=== PATIENT | male | born 1965 | race Caucasian/White ===

== ENCOUNTER 2018-03-31 14:02 | Inpatient (IN) ==
[2018-03-31] MEDS ORDERED: 0.9 % Sodium Chloride 1,000 ML IVC ONE ×2 (14:27→17:10)
[2018-03-31] MEDS ORDERED: Ipratropium/Albuterol Neb 3 ML IH ONE (14:41)
[2018-03-31] MEDS ORDERED: methylPREDNISolone 125 MG/2 ML VIAL IVP ONE (14:41)
[2018-03-31] MEDS ORDERED: Ondansetron 4 MG/2 ML VIAL IVP ONE (14:43)
--- NOTE | 2018-03-31 14:44 | Emergency Department Note ---
Disposition Clinical Impression: COPD exacerbation Lung cancer Qualifiers: Laterality: right Lung location: unspecified part of lung Qualified Code(s): C34.91 - Malignant neoplasm of unspecified part of right bronchus or lung Disposition: Admitted As Inpatient Condition: Good Referrals: Deniz Lane DO [Primary Care Provider] - Forms: ED Satisfaction Letter General Adult HPI - General Chief complaint: ED Shortness of Breath/Dyspnea Stated complaint: DEEPA Time Seen by Provider: 03/31/18 14:26 Source: patient Limitations: no limitations Nursing Notes Reviewed: Yes Vital Signs Reviewed: Yes - History of Present Illness HPI Narrative: The patient is a 53 year old male with history of COPD who presented with dyspnea, chest pain, and cough. He stated the dyspnea began 2 weeks ago but acutely worsened today around 4AM. It worsens with exertion and with lying flat. He reported productive cough that has worsened from his baseline cough and increased sputum production that is black and yellow in color. He states the chest pain worsens with deep inspiration. He reports occasional shooting pain from the right shoulder to his sternum. He reports substernal chest pain at this time that is a constant pressure. He also reported nausea, 2 episodes of vomiting this morning, and diaphoresis. He last used his nebulizer and albuterol inhaler at noon today with no relief in symptoms. He denied recent steroid use and recent antibiotic use. He has never felt like this in the past. He has a history of smoking, uncontrolled diabetes, hypertension and COPD. His family history is positive for blood clots, stroke, and IN. Pain Scale: 8 - Related Data Home Medications Medication Instructions Recorded Confirmed Celexa 03/17/15 03/17/15 Glucophage 03/17/15 03/17/15 Previous Rx's Medication Instructions Recorded LORazepam [Ativan] 0.5 mg PO Q4HR PRN #8 tablet 09/19/15 Cyclobenzaprine [Flexeril] 10 mg PO TID PRN #15 tablet 10/10/15 predniSONE [Prednisone] 20 mg PO DAILY 9 Days tablet 10/10/15 Clindamycin [Cleocin] 300 mg PO Q6HR #56 capsule 10/29/15 OxyCODONE/APAP 5/325 [Percocet 1 each PO Q8HR PRN #7 tablet 12/28/15 5/325 MG] Dextran 70/Hypromellose [Natural 15 ml OP PRN PRN #2 drops 08/14/16 Balance Tears Eye Drop] Cephalexin [Keflex] 500 mg PO QID #28 capsule 06/12/17 Ibuprofen [Motrin] 600 mg PO Q8HR PRN #20 tab 06/12/17 Sulfamethoxazole/Trimeth DS 1 each PO BID #14 tablet 06/12/17 [Bactrim DS] Dicyclomine [Bentyl] 10 mg PO QID #20 capsule 12/17/17 Ondansetron ODT [Zofran ODT] 4 mg SL Q6HR PRN #15 tab.rapdis 12/17/17 Allergies Allergy/AdvReac Type Severity Reaction Status Date / Time sumatriptan [From Imitrex] AdvReac Hives Verified 03/31/18 14:15 Constitutional: Reports: weakness Eyes: Denies: eye pain, eye discharge, vision change Cardiovascular: Reports: chest pain, dyspnea on exertion, orthopnea, other ( diaphoresis; denied chest pain radiating to the back; denied tearing chest pain) . Denies: edema Respiratory: Reports: cough, dyspnea, sputum production Gastrointestinal: Reports: nausea, vomiting. Denies: abdominal pain, diarrhea, constipation, hematemesis, melena, hematochezia Musculoskeletal: Reports: back pain, neck pain, other (right shoulder pain for 4 weeks duration) Integumentary: Denies: rash Neurological: Denies: headache Psychiatric: Reports: anxiety, depression Endocrine: Reports: fatigue Past Medical History - Past Medical History Medical history: Reports: diabetes, hyperlipidemia, hypertension, migraine, other Surgical history: Reports: other Psychiatric history: Reports: anxiety, depression, PTSD - Social History Smoking Status: Current every day smoker Smokeless Tobacco Status: No Alcohol use: Reports: occasionally Drug use: Reports: none Physical Exam General: Moderate respiratory distress Head: Normocephalic Atraumatic Eyes: PERRL, EOMI ENT: Airway patent, no stridor Neck: supple, no meningismus Chest: Decreased breath sounds bilaterally Cardiac: Regular rhythm Abdomen: soft, nontender, nondistended; no guarding, rebound, or tenderness to percussion Musculoskeletal: Calves symmetric, nontender; mild swelling without significant pitting edema Skin: No rash, normal skin tone Neuro: Alert and Oriented to person, place, and time; No focal deficit, - General Limitations: no limitations General appearance: alert, in no apparent distress Course - Reevaluation(s) Reevaluation #1: Patient with new mass on x-ray. CTA ordered to rule out PE and get further information about mass. Reevaluation #2: Patient has mass concerning for lung cancer. I did have this discussion with the patient. His breathing has improved but continues to have wheezing. More do nebs have been ordered. His pulse ox is 100% on room air during my evaluation. CTA was negative for PE. Antibiotics have been prescribed secondary to positive sputum production. - Consultations Consultation #1: Stress with hospitalist. Patient accepted for admission. Vital Signs Temperature 97.8 F 03/31/18 14:03 Pulse Rate 122 03/31/18 14:03 Respiratory Rate 22 03/31/18 14:03 Blood Pressure 155/96 03/31/18 14:03 O2 Sat by Pulse Oximetry 94 03/31/18 14:03 Temperature 97.8 F 03/31/18 14:14 Pulse Rate 105 03/31/18 17:41 Respiratory Rate 26 03/31/18 17:41 Blood Pressure 164/117 03/31/18 17:41 O2 Sat by Pulse Oximetry 96 03/31/18 17:41 Oxygen Delivery Oxygen Delivery Room Air Medical Decision Making - Lab Data Result diagrams: 03/31/18 14:27 03/31/18 14:27 Lab Results 03/31/18 03/31/18 03/31/18 Range/Units 14:27 14:27 14:30 WBC 9.5 (4.3-11.1) K/mcL RBC 5.46 (4.19-5.50) M/mcL Hgb 17.6 H (12.9-16.9) g/dL Hct 50.4 H (37.5-50.1) % MCV 92.3 (83.0-100.0) fL MCH 32.2 (28.0-33.3) pg MCHC 34.9 (31.6-35.5) g/dL RDW 12.9 (11.5-14.5) % Plt Count 236 (140-400) K/mcL MPV 10.8 (9.4-12.4) fL Immature Gran % 0.4 (0-4) % Seg Neutrophils % 65.2 % Lymphocytes % 24.6 % Monocytes % 7.7 % Eosinophils % 1.4 % Basophils % 0.7 % Neutrophils # 6.2 (1.6-8.9) K/mcL Lymphocytes # 2.3 (0.6-4.6) K/mcL Monocytes # 0.7 (0.0-1.3) K/mcL Eosinophils # 0.1 (0.0-0.6) K/mcL Basophils # 0.1 (0.0-0.2) K/mcL VBG pH (7.32-7.42) pH Units VBG pCO2 (41-51) mmHg VBG pO2 (25-50) mmHg VBG HCO3 (21-27) mEq/L Sodium 128 L (136-145) mEq/L Potassium 4.4 (3.5-5.1) mEq/L Chloride 92 L (98-107) mEq/L Carbon Dioxide 25 (23-29) mEq/L BUN 12 (6-20) mg/dL Creatinine 0.81 (0.70-1.30) mg/dL Est GFR ( Amer) > 60 (> 60) Est GFR (Non-Af Amer) > 60 (> 60) BUN/Creatinine Ratio 15 (6-26) Glucose 455 H (70-105) mg/dL Calculated Osmolality 286 (280-300) Lactic Acid 1.7 (0.5-2.2) mmol/L Calcium 10.4 H (8.6-10.3) mg/dL Troponin I < 0.03 (< 0.04) ng/mL B-Natriuretic Peptide (Less than 100) pg/mL Beta-Hydroxybutyric Acd (0.02-0.27) mmol/L Urine Color (Yellow) Urine Clarity (Clear) Urine pH (5.0-8.0) pH Units Ur Specific [place] (1.010-1.025) Urine Protein (Neg-Trace) mg/dL Urine Glucose (UA) (Normal) mg/dL Urine Ketones (Negative) mg/dL Urine Blood (Negative) Urine Nitrite (Negative) Urine Bilirubin (Negative) Urine Urobilinogen (Normal) mg/dL Ur Leukocyte Esterase (Negative) Urine Microscopic RBC (0-3) per hpf Urine Microscopic WBC (0-3) per hpf Ur Squamous Epith Cells (None-Few) per lpf Urine Bacteria (None-Few) per hpf Hyaline Casts (None-Few) per lpf Ur Culture Indicated? (NO) 03/31/18 03/31/18 03/31/18 Range/Units 14:30 16:08 16:20 WBC (4.3-11.1) K/mcL RBC (4.19-5.50) M/mcL Hgb (12.9-16.9) g/dL Hct (37.5-50.1) % MCV (83.0-100.0) fL MCH (28.0-33.3) pg MCHC (31.6-35.5) g/dL RDW (11.5-14.5) % Plt Count (140-400) K/mcL MPV (9.4-12.4) fL Immature Gran % (0-4) % Seg Neutrophils % % Lymphocytes % % Monocytes % % Eosinophils % % Basophils % % Neutrophils # (1.6-8.9) K/mcL Lymphocytes # (0.6-4.6) K/mcL Monocytes # (0.0-1.3) K/mcL Eosinophils # (0.0-0.6) K/mcL Basophils # (0.0-0.2) K/mcL VBG pH (7.32-7.42) pH Units VBG pCO2 (41-51) mmHg VBG pO2 (25-50) mmHg VBG HCO3 (21-27) mEq/L Sodium (136-145) mEq/L Potassium (3.5-5.1) mEq/L Chloride (98-107) mEq/L Carbon Dioxide (23-29) mEq/L BUN (6-20) mg/dL Creatinine (0.70-1.30) mg/dL Est GFR ( Amer) (> 60) Est GFR (Non-Af Amer) (> 60) BUN/Creatinine Ratio (6-26) Glucose (70-105) mg/dL Calculated Osmolality (280-300) Lactic Acid (0.5-2.2) mmol/L Calcium (8.6-10.3) mg/dL Troponin I (< 0.04) ng/mL B-Natriuretic Peptide 14 (Less than 100) pg/mL Beta-Hydroxybutyric Acd 1.12 H (0.02-0.27) mmol/L Urine Color Yellow (Yellow) Urine Clarity Clear (Clear) Urine pH 6.0 (5.0-8.0) pH Units Ur Specific [place] > 1.030 H (1.010-1.025) Urine Protein 30 H (Neg-Trace) mg/dL Urine Glucose (UA) >=1000 H (Normal) mg/dL Urine Ketones 15 H (Negative) mg/dL Urine Blood Negative (Negative) Urine Nitrite Negative (Negative) Urine Bilirubin Negative (Negative) Urine Urobilinogen Normal (Normal) mg/dL Ur Leukocyte Esterase Negative (Negative) Urine Microscopic RBC 0-3 (0-3) per hpf Urine Microscopic WBC 0-3 (0-3) per hpf Ur Squamous Epith Cells None Seen (None-Few) per lpf Urine Bacteria None Seen (None-Few) per hpf Hyaline Casts None Seen (None-Few) per lpf Ur Culture Indicated? NO (NO) 03/31/18 Range/Units 16:22 WBC (4.3-11.1) K/mcL RBC (4.19-5.50) M/mcL Hgb (12.9-16.9) g/dL Hct (37.5-50.1) % MCV (83.0-100.0) fL MCH (28.0-33.3) pg MCHC (31.6-35.5) g/dL RDW (11.5-14.5) % Plt Count (140-400) K/mcL MPV (9.4-12.4) fL Immature Gran % (0-4) % Seg Neutrophils % % Lymphocytes % % Monocytes % % Eosinophils % % Basophils % % Neutrophils # (1.6-8.9) K/mcL Lymphocytes # (0.6-4.6) K/mcL Monocytes # (0.0-1.3) K/mcL Eosinophils # (0.0-0.6) K/mcL Basophils # (0.0-0.2) K/mcL VBG pH 7.37 (7.32-7.42) pH Units VBG pCO2 42 (41-51) mmHg VBG pO2 132 H (25-50) mmHg VBG HCO3 24 (21-27) mEq/L Sodium (136-145) mEq/L Potassium (3.5-5.1) mEq/L Chloride (98-107) mEq/L Carbon Dioxide (23-29) mEq/L BUN (6-20) mg/dL Creatinine (0.70-1.30) mg/dL Est GFR ( Amer) (> 60) Est GFR (Non-Af Amer) (> 60) BUN/Creatinine Ratio (6-26) Glucose (70-105) mg/dL Calculated Osmolality (280-300) Lactic Acid (0.5-2.2) mmol/L Calcium (8.6-10.3) mg/dL Troponin I (< 0.04) ng/mL B-Natriuretic Peptide (Less than 100) pg/mL Beta-Hydroxybutyric Acd (0.02-0.27) mmol/L Urine Color (Yellow) Urine Clarity (Clear) Urine pH (5.0-8.0) pH Units Ur Specific [place] (1.010-1.025) Urine Protein (Neg-Trace) mg/dL Urine Glucose (UA) (Normal) mg/dL Urine Ketones (Negative) mg/dL Urine Blood (Negative) Urine Nitrite (Negative) Urine Bilirubin (Negative) Urine Urobilinogen (Normal) mg/dL Ur Leukocyte Esterase (Negative) Urine Microscopic RBC (0-3) per hpf Urine Microscopic WBC (0-3) per hpf Ur Squamous Epith Cells (None-Few) per lpf Urine Bacteria (None-Few) per hpf Hyaline Casts (None-Few) per lpf Ur Culture Indicated? (NO)
[2018-03-31 14:47] LABS: Basophils # 0.1 K/mcL (0.0-0.2); Basophils % 0.7 %; Eosinophils # 0.1 K/mcL (0.0-0.6); Eosinophils % 1.4 %; Hematocrit 50.4 % (37.5-50.1); Hemoglobin 17.6 g/dL (12.9-16.9); Immature Granulocytes % 0.4 % (0-4); Lymphocytes # 2.3 K/mcL (0.6-4.6); Lymphocytes % 24.6 %; Mean Corpuscular HGB Conc 34.9 g/dL (31.6-35.5); Mean Corpuscular Hemoglobin 32.2 pg (28.0-33.3); Mean Corpuscular Volume 92.3 fL (83.0-100.0); Mean Platelet Volume 10.8 fL (9.4-12.4); Monocytes # 0.7 K/mcL (0.0-1.3); Monocytes % 7.7 %; Neutrophils # 6.2 K/mcL (1.6-8.9); Platelet Count 236 K/mcL (140-400); Red Blood Count 5.46 M/mcL (4.19-5.50); Red Cell Distribution Width 12.9 % (11.5-14.5); Segmented Neutrophils % 65.2 %
[2018-03-31] MEDS ORDERED: Isovue-370 500 ML INFUS..BTL IV ONE ×2 (15:08→15:21)
[2018-03-31 15:15] LABS: Troponin I < 0.03 ng/mL (< 0.04)
[2018-03-31 15:23] LABS: BUN/Creatinine Ratio 15 (6-26); Blood Urea Nitrogen 12 mg/dL (6-20); Calcium 10.4 mg/dL (8.6-10.3); Carbon Dioxide 25 mEq/L (23-29); Chloride 92 mEq/L (98-107); Glucose 455 mg/dL (70-105); Osmolality,Calculated 286 (280-300); Potassium 4.4 mEq/L (3.5-5.1); Sodium 128 mEq/L (136-145); eGFR For Non-African Americans > 60 (> 60)
[2018-03-31] MEDS ORDERED: *HR* OxyCODONE Immed Rel 5 MG TABLET PO STA ×2 (15:38→17:37)
[2018-03-31 16:26] LABS: VBG HCO3 24 mEq/L (21-27); VBG PCO2 42 mmHg (41-51); VBG PH 7.37 pH Units (7.32-7.42); VBG PO2 132 mmHg (25-50)
[2018-03-31 16:37] LABS: Bilirubin,Urine Negative (Negative); Blood,Urine Negative (Negative); Clarity,Urine Clear (Clear); Color,Urine Yellow (Yellow); Glucose,Urine (UA) >=1000 mg/dL (Normal); Ketones,Urine 15 mg/dL (Negative); Leukocyte Esterase,Urine Negative (Negative); Nitrite,Urine Negative (Negative); Protein,Urine 30 mg/dL (Neg-Trace); Specific Gravity,Urine > 1.030 (1.010-1.025); Urobilinogen,Urine Normal (Normal)
[2018-03-31 16:39] LABS: Bacteria,Urine None Seen per hpf (None-Few); Hyaline Casts,Urine None Seen per lpf (None-Few); RBC,Urine 0-3 per hpf (0-3); Squamous Epithelial Cell,Urine None Seen per lpf (None-Few); WBC,Urine 0-3 per hpf (0-3)
[2018-03-31] MEDS ORDERED: cefTRIAXone 1,000 MG in Water for inj. (sterile) 20 ML 10 ML IVP ONE (17:37)
[2018-03-31] MEDS ORDERED: Azithromycin 250 MG TABLET PO ONE (17:37)
[2018-03-31] MEDS ORDERED: Insulin Human Regular 10 UNIT in 0.9 % Sodium Chloride 10 ML IV ONE (18:08)
[2018-03-31] MEDS ORDERED: Naloxone 0.4 MG/ML INJ IVP PRN (18:11)
[2018-03-31] MEDS: Ipratropium/Albuterol Neb 3 ML IH SCH (19:44)
[2018-03-31] MEDS ORDERED: *HR* LORazepam 2 MG/ML VIAL IVP ONE (20:14)
[2018-03-31] MEDS ORDERED: Insulin LISPRO 300 UNITS/3 ML VIAL SQ SCH (21:00)
--- NOTE | 2018-03-31 21:59 | Internal Med History&Physical ---
Date of Encounter: 03/31/18 Time of Encounter: 21:27 Internal Medicine - H&P: HPI Chief complaint: cough, shortness of breath, chest pain Admitted From: Home History of present illness: Mr. Huynh is a 53 year old male hx COPD presented to ED for shortness of breath , productive cough, and chest pain he describes as restricted from taking large breath. Onset 2-3 weeks ago with increased mucus production with yellow to black sputum. he is using albuteral inhaler 7-8 times per day with out improvement. In last four days, he has 3-4 episodes of vomiting per day triggered by sever coughing and concurrent with with mild nausea that resolves one hour after vomiting. Admits to diaphoresis but denies sharp or crushing chest pain or radiation of left arm or neck. Negative troponin and BNP. He reports one week of right shoulder pain - tender worse at scapula and sharp pain radiating to sternum. In Ed, Chest - X ray showed a mass that was followed up by CTA confirming a large right upper lob mass consistent with primary lung cancer with possible mets to right hilar lymph nodes. No signs of PE or infiltrate. Treated for COPD exacerbation with with azithromycin, duonebs and solu-medral 60 mg. He was tachycardia at 114 and tachypenic 26- but afebrile and oxygen saturation 95% on room air with normal lactic acid. Smoking history of 2-3 packs for 30 years. He has uncontrolled diabetes with neuropathy , his blood glucoses typically 200 -300 but increased to 300-400s the last 2-3 weeks with increased polydipsa and polyruria. In same time period has weight loss of 12 lbs with decreased appetite that he attributed to stress. he reports mild headache located occiput right sided with blurred visioning right eye . In Ed, glucose was 455 and positive beta of 1.12 with anion gap of 11- for which he received 2 liters IVF and insulin regular 10 units. He has Bipolar disorder and notes increased recent anxiety and agitation due to life stresses with history of aggression. He does not follow with a psychiatrist. He was last hospitalized for psychiatric concerns one year ago after manic episode triggered by Lyrica. Tonight in ED he because very anxious after receiving this bad news and received 1mg Ativan. He has history of hypertension but stopped propanlol a few months ago because his blood pressure was controlled. Past Med Surg Social Fam HX - Past Medical History Medical history: diabetes, hyperlipidemia, hypertension, migraine, other Additional medical history: back problems Psychiatric history: anxiety, depression, PTSD - Past Surgical History Surgical History: other Additional surgical history: cyst removed -rt arm/back - Social History Smoking Status: Current every day smoker Smokeless Tobacco Status: No Alcohol use: occasionally Drug use: none Internal Medicine - H&P: Meds Albuterol Sulfate [Ventolin Hfa] 2 puff IH Q6H PRN 03/31/18 [History] Fluticasone Propionate Nasal [Flonase] 1 spr NS DAILY 03/31/18 [History] Fluticasone/Vilanterol [Breo Ellipta 100-25 Mcg INH] 1 puff IH DAILY 03/31/18 [ History] Insulin Glargine,Hum.rec.anlog [[place] Solostoneyda] 65 unit SQ HS 03/31/18 [History ] Loratadine [Claritin] 10 mg PO DAILY 03/31/18 [History] Venlafaxine HCl [Venlafaxine HCl ER] 150 mg PO DAILY 03/31/18 [History] 3 Allergy/AdvReac Type Severity Reaction Status Date / Time sumatriptan [From Imitrex] AdvReac Hives Verified 03/31/18 18:33 All Systems PM: A 10-system review of systems was performed and is negative for pertinent findings except as documented above in the HPI. - Constitutional Constitutional: as per HPI, chills, fatigue, fever(s), weight loss - EENT Eyes: as per HPI, blurry vision, change in vision, no spots in vision, no tunnel vision Additional comments: Blurry vision in right eye with bilateral gradual decrease in visual acuity, last eye exam over 2 years ago - Cardiovascular Cardiovascular ROS IM: as per HPI, chest pain, diaphoresis, dyspnea, no edema - Respiratory Respiratory: as per HPI, cough, dyspnea, dyspnea on exertion, wheezing, excessive phlegm production, change in phlegm color, no hemoptysis - Gastrointestinal Gastrointestinal: abdominal pain, vomiting, no diarrhea, no hematemesis - Genitourinary Genitourinary ROS male: urinary frequency, no difficulty urinating, no dysuria, no hematuria - Musculoskeletal Musculoskeletal ROS IM: arthralgias, no neck pain - Integumentary Integumentary IM: no erythema, no rash - Neurological Neurological ROS: as per HPI, headache(s), weakness - Psychiatric Psychiatric: anxiety, behavioral changes, irritability, mood swings, no suicidal ideation - Constitutional Vitals: Temp Pulse Resp BP Pulse Ox 97.8 F 110 21 163/101 95 03/31/18 14:14 03/31/18 19:56 03/31/18 19:56 03/31/18 19:56 03/31/18 19:56 General appearance: Present: mild distress, A&O X 3, answers questions appropriately Exam: anxious and shaking but good oxygen saturation on room air - Head Head exam: Present: atraumatic, normocephalic - Respiratory Respiratory exam: Present: decreased breath sounds. Absent: accessory muscle use, stridor, wheezes Additional comments: decreased breath sounds in lower [place] - Cardiovascular Cardiovascular exam: Present: +S1, +S2, tachycardia. Absent: gallop, +S3, +S4 - GI/Abdominal GI/Abdominal exam: Present: normal bowel sounds, tenderness. Absent: distended , mass, rebound Additional comments: diffuse abdominal tenderness - Extremities Exam Extremities exam: Present: tenderness, radial pulses palpable and symmetrical. Absent: calf tenderness, joint swelling, pedal edema Additional comments: tenderness to right scapula Internal Med - H&P Results - Labs CBC & Chem 7: 03/31/18 14:27 03/31/18 14:27 - Assessment and plan (1) COPD exacerbation Current Visit: Yes Status: Acute Assessment and plan: COPD exacerbation possible restricive pattern with lung mass. Unlikely PNA with negative lactic acid and no infiltrates on CTA. - Solumedrol 60mg q 8 - Azithromycin - Duoneb q 4 hr - NC oxygen supplementation PRN (2) Hyperglycemia Current Visit: Yes Status: Acute Assessment and plan: glucose of 455 with beta hydroxybutyric 1.12 unlikely to be DKA with anion gap of 11 - start basal insulin at 18 with nutrition based 6 - mild hyponatremia 129 - normal plasma calculated osm - urine ketones and glucose (3) Lung cancer Current Visit: Yes Status: Acute Assessment and plan: New diagnosis based on chest CTA- likely primary mass with mets to right hilar - plan to consult pulm tomorrow to advise for further diagnostic and out patient follow up - consider consult social work (4) Bipolar 1 disorder Current Visit: Yes Status: Acute Assessment and plan: Increased anxiety with new cancer diagnosis but no other signs of acute manic episode- likely cause of tachycardia - continue effexor - hydroxyzine 50mg tid PRN - consider psych consult if he develops manic symptoms - order UDS with presumptive positive for benzo given in ED (5) Chest pain Current Visit: Yes Status: Acute Assessment and plan: Atypically chest pain possibly referred pain lung cancer - negative troponin - will trend - normal BNP 14 - EKG no acute changes Qualifiers: Chest pain type: chest pain on breathing Qualified Code(s): R07.1 - Chest pain on breathing; R07.81 - Pleurodynia (6) Hypertension Current Visit: Yes Status: Acute Assessment and plan: restart propanlol 20 mg tid with hope it may also help anxiety Qualifiers: Hypertension type: essential hypertension Qualified Code(s): I10 - Essential (primary) hypertension - Time Spent With Patient Total time spent is greater than 50% in coordination of care (as documented) at patient's floor/unit and/or counseling patient: Greater than 35 minutes
[2018-03-31] MEDS ORDERED: Dextrose Gel 15 GM/37.5 ML TUBE PO PRN ×2 (22:15)
[2018-03-31] MEDS ORDERED: *HR* Dextrose 50 % in Water (Syg) 50 ML SYRINGE IVP PRN (22:15)
[2018-03-31] MEDS ORDERED: D5% in Water 1,000 ML IVC PRN (22:15)
[2018-03-31] MEDS ORDERED: Ondansetron ODT 4 MG TAB.RAPDIS SL PRN (22:21)
[2018-03-31] MEDS: hydrOXYzine pamoate 25 MG CAPSULE PO PRN (23:31)
[2018-03-31] MEDS: Insulin DETEMIR 100 UNIT/ML X5UNITS SQ SCH (23:32)
[2018-03-31] MEDS ORDERED: Acetaminophen 325 MG TABLET PO PRN (23:51)
[2018-04-01] MEDS ORDERED: methylPREDNISolone 125 MG/2 ML VIAL IVP SCH
[2018-04-01] MEDS ORDERED: *HR* HYDROcodone/Acet 5/325 mg TABLET PO ONE (00:03)
[2018-04-01] MEDS: Ipratropium/Albuterol Neb 3 ML IH SCH ×7 (00:18→23:45)
[2018-04-01 00:46] LABS: Basophils % 0.2 %; Hematocrit 44.2 % (37.5-50.1); Immature Granulocytes % 0.8 % (0-4); Lymphocytes # 0.4 K/mcL (0.6-4.6); Lymphocytes % 6.8 %; Mean Corpuscular HGB Conc 35.1 g/dL (31.6-35.5); Mean Corpuscular Hemoglobin 32.2 pg (28.0-33.3); Mean Corpuscular Volume 91.7 fL (83.0-100.0); Mean Platelet Volume 10.9 fL (9.4-12.4); Monocytes # 0.1 K/mcL (0.0-1.3); Monocytes % 1.7 %; Neutrophils # 5.9 K/mcL (1.6-8.9); Platelet Count 197 K/mcL (140-400); Red Blood Count 4.82 M/mcL (4.19-5.50); Red Cell Distribution Width 12.6 % (11.5-14.5); Segmented Neutrophils % 90.5 %
[2018-04-01 00:50] LABS: Hemoglobin 15.5 g/dL (12.9-16.9)
[2018-04-01 01:17] LABS: BUN/Creatinine Ratio 22 (6-26); Blood Urea Nitrogen 20 mg/dL (6-20); Calcium 9.7 mg/dL (8.6-10.3); Carbon Dioxide 23 mEq/L (23-29); Chloride 93 mEq/L (98-107); Glucose 520 mg/dL (70-105); Osmolality,Calculated 286 (280-300); Potassium 4.6 mEq/L (3.5-5.1); Sodium 125 mEq/L (136-145); eGFR For Non-African Americans > 60 (> 60)
--- NOTE | 2018-04-01 01:27 | Event Note ---
Date of Encounter: 04/01/18 Time of Encounter: 01:24 I received notification critical lab glucose 520. Per nurse he received basal insulin at 11:30 pm and then glucose reading at midnight. The patient ate subway sandwich. Bruno will recheck glucose now and use the sliding bernard
[2018-04-01] MEDS ORDERED: Insulin LISPRO 300 UNITS/3 ML VIAL SQ ONE (01:31)
[2018-04-01 02:07] LABS: Amphetamine Screen,Urine Negative ng/mL (Cutoff=1000); Barbiturate Screen,Urine Negative ng/mL (Cutoff=200); Benzodiazepines Screen,Urine Negative ng/mL (Cutoff=200); Cannabinoid Screen,Urine Negative ng/mL (Cutoff = 50); Cocaine Screen,Urine Negative ng/mL (Cutoff= 300); Opiate Screen,Urine Negative ng/mL (Cutoff=300); Phencyclidine Screen,Urine Negative ng/mL (Cutoff=25)
[2018-04-01] MEDS: *HR* Heparin 5,000 UNIT/ML VIAL SQ SCH ×2 (06:18→17:10)
[2018-04-01 06:54] LABS: Estimated Average Glucose 258 mg/dl; Hemoglobin A1C 10.6 %
--- NOTE | 2018-04-01 07:46 | Electrocardiograph Report ---
[address] [place] [address] Test Date: 2018-03-31 Pat Name: Mani Huynh Department: [id number] Room: 2A37 Gender: Research Home Economist: : 1965 Requested By: [id number] Order Number: [id number] Reading MD: Sreedhar Metlon Measurements Intervals [place] Rate: 109 P: 64 CA: 130 QRS: 228 QRSD: 100 T: 61 QT: 329 QTc: 443 Interpretive Statements Sinus tachycardia Probable left atrial enlargement Possible inferior infarct, old Electronically Signed On 04-01-2018 7:44:13 EDT by Sreedhar Melton
[2018-04-01] MEDS ORDERED: Insulin LISPRO 300 UNITS/3 ML VIAL SQ SCH (08:00)
[2018-04-01] MEDS: MethylPREDNISolone 40 MG/ML VIAL IVP SCH ×2 (08:47→16:19)
[2018-04-01] MEDS: Venlafaxine XR (24 HR) 150 MG CAP.ER.24H PO SCH (08:47)
[2018-04-01] MEDS: Loratadine 10 MG TABLET PO SCH (08:47)
[2018-04-01] MEDS: Insulin LISPRO 300 UNITS/3 ML VIAL SQ SCH ×6 (08:54→21:34)
[2018-04-01] MEDS ORDERED: [Breo Ellipta 100-25 Mcg IH SCH (09:00)
[2018-04-01] MEDS: hydrOXYzine pamoate 25 MG CAPSULE PO PRN ×2 (09:08→21:24)
[2018-04-01] MEDS: Fluticasone Propionate Nasal 50 MCG/SPRAY BOTTLE NS SCH (09:53)
[2018-04-01] MEDS: *HR* OxyCODONE Immed Rel 5 MG TABLET PO PRN ×3 (11:03→21:25)
[2018-04-01] MEDS ORDERED: Acetaminophen 325 MG TABLET PO PRN (13:21)
--- NOTE | 2018-04-01 14:10 | Internal Med Progress Note ---
Hospitalist Progress Note - Encounter Date of Encounter: 04/01/18 Time of Encounter: 10:00 - Subjective Interval History: H&P reviewed. 53-year-old male with history of COPD and tobacco abuse is admitted for COPD exacerbation and newly diagnosed right upper lobe mass. Complaining of R upper chest/shoulder pain. SOB improved. No palpitation, orthopnea, leg swelling. - Exam Vitals: Temp Pulse Resp BP Pulse Ox 98.6 F 73 16 157/94 95 04/01/18 11:41 04/01/18 11:41 04/01/18 11:47 04/01/18 11:41 04/01/18 11:47 Exam: General: Alert and oriented, not in acute distress. Cardiovascular:Normal S1 & S2, No JVD. Pulse regular. Lungs: scattered wheezes bilaterally Abdomen:Soft, non-tender, no rigidity. MSK: R shoulder/upper chest tender to palpation. ROM full Neurological:Normal cognition and motor skills. Non-focal - Assessment and Plan (1) COPD exacerbation Current Visit: Yes Status: Acute Assessment and Plan: Continue IV Solu-Medrol, azithromycin, and duoneb every 4 and when necessary (2) Mass of right lung Current Visit: Yes Status: Acute Assessment and Plan: New diagnosis, history of 50 pack year smoking Associated with right hilar lymphadenopathy and extension into the mediastinum abutting the ascending aorta significant pain over the same region, analgesics as prescribed pulm consult, NPO after midnight for bronchoscopy tomorrow (3) Diabetes mellitus Current Visit: Yes Status: Acute Assessment and Plan: Poorly controlled diabetes, A1c 10.6 Glycemic control aggravated by steroid use, 429 on presentation improving on current regime of levemir 18U and lispro 6U TIDWM with MDSS, continue (4) DVT prophylaxis Current Visit: Yes Status: Acute Assessment and Plan: Subcutaneous heparin - Time Spent with Patient Total time spent is greater than 50% in coordination of care (as documented) at patient's floor/unit and/or counseling patient: Plan of Care Discussed with: patient Internal Medicine: Result - Labs CBC & Chem 7: 04/01/18 00:23 04/01/18 00:23 Labs: Short CBC 04/01/18 Range/Units 00:23 WBC 6.5 (4.3-11.1) K/mcL Hgb 15.5 D (12.9-16.9) g/dL Hct 44.2 (37.5-50.1) % Plt Count 197 (140-400) K/mcL Neutrophils # 5.9 (1.6-8.9) K/mcL BMP 04/01/18 00:23 Sodium 125 L Potassium 4.6 Chloride 93 L Carbon Dioxide 23 BUN 20 Creatinine 0.91 Glucose 520 H* Calcium 9.7 Cardiac Enzymes 04/01/18 04/01/18 Range/Units 00:23 05:53 Troponin I < 0.03 < 0.03 (< 0.04) ng/mL Consult Discharge Plan - Plan Referrals: Deniz Lane DO [Primary Care Provider] - (3) Diabetes mellitus Qualifiers: Diabetes mellitus type: type 2 Diabetes mellitus snf insulin use: with roasterman use Diabetes mellitus complication status: with unspecified complications Qualified Code(s): E11.8 - Type 2 diabetes mellitus with unspecified complications; 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
[2018-04-01] MEDS ORDERED: 0.9 % Sodium Chloride 1,000 ML IVC SCH (14:30)
[2018-04-01] MEDS: Budesonide/Formoterol 160/4.5 1 PUFF INH IH SCH ×2 (15:45→19:43)
--- NOTE | 2018-04-01 16:14 | Pulmonology Consult Note ---
<Nemo Mayer M - Last Filed: 04/01/18 17:34> Date of Encounter: 04/01/18 Medications and Allergies Albuterol Sulfate [Ventolin Hfa] 2 puff IH Q6H PRN 03/31/18 [History] Fluticasone Propionate Nasal [Flonase] 1 spr NS DAILY 03/31/18 [History] Fluticasone/Vilanterol [Breo Ellipta 100-25 Mcg INH] 1 puff IH DAILY 03/31/18 [ History] Insulin Glargine,Hum.rec.anlog [Toujeo Solostar] 65 unit SQ HS 03/31/18 [History ] Loratadine [Claritin] 10 mg PO DAILY 03/31/18 [History] Venlafaxine HCl [Venlafaxine HCl ER] 150 mg PO DAILY 03/31/18 [History] 3 Allergy/AdvReac Type Severity Reaction Status Date / Time sumatriptan [From Imitrex] AdvReac Hives Verified 03/31/18 18:33 All Systems: The remainder of the systems were reviewed and are negative Physical Examination Vital Signs: Vital Signs, Last 4 Hours Temp Pulse Resp BP Pulse Ox 04/01/18 16:25 97.9 F 81 19 140/86 97 04/01/18 15:47 16 95 Results - Laboratory Findings CBC and BMP: 04/01/18 00:23 04/01/18 00:23 Abnormal lab findings: Abnormal lab results Lymphocytes # 0.4 K/mcL (0.6-4.6) L 04/01/18 00:23 VBG pO2 132 mmHg (25-50) H 03/31/18 16:22 Sodium 125 mEq/L (136-145) L 04/01/18 00:23 Chloride 93 mEq/L (98-107) L 04/01/18 00:23 Glucose 520 mg/dL (70-105) H* 04/01/18 00:23 POC Glucose 149 mg/dL (70-99) H 04/01/18 12:24 Hemoglobin A1c 10.6 % (-5.6) H 04/01/18 00:23 Beta-Hydroxybutyric Acd 1.12 mmol/L (0.02-0.27) H 03/31/18 16:08 Ur Specific [place] > 1.030 (1.010-1.025) H 03/31/18 16:20 Urine Protein 30 mg/dL (Neg-Trace) H 03/31/18 16:20 Urine Glucose (UA) >=1000 mg/dL (Normal) H 03/31/18 16:20 Urine Ketones 15 mg/dL (Negative) H 03/31/18 16:20 Consult Discharge Plan - Plan Referrals: Deniz Lane DO [Primary Care Provider] - - Attending Attestation I examined this patient and my medical decision-making was reviewed with the Resident Physician. I agree with the documented findings, disposition and treatment plan as described except to the extent set forth below. Patient seen and examined. Labs, radiology, chart personally reviewed. 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 Reviewed CT chest result with the patient and this is very concerning for malignancies since patient has significant history of smoking and he was counseled to quit smoking and the location is protecting this is bronchogenic carcinoma. I have explained to the patient that he needs biopsy and he understand and agreed to have it done. I will arrange bronchoscopy for the patient.A bronchoscopy is recommended. The procedure , risks, benefits, complications, and expected outcomes have been reviewed. Benefits of diagnosis, as well as risks to include bleeding, infection, pneumothorax which may require surgical intervention, and in a small population. The patient is aware that sometimes test is nondiagnostic. Discussed with patient and agrees to proceed. Cardiovascular: stable Thank you for the consultation <Tereso Kessler - Last Filed: 04/01/18 23:03> Date of Encounter: 04/01/18 Time of Encounter: 16:14 Assessment and Plan (1) Mass of right lung Current Visit: Yes Status: Acute CTA revealed large right upper lobe mass measuring 6.6 x 5.7 x 6.0cm adjacent to the mediastinum with an enlarged right hilar lymph node concerning for metastisis Given pt's hx of tobacco abuse, likely primary lung cancer Plan for bronchoscopy with biopsies tomorrow. Procedure, risks and benefits discussed at length with pt. (2) Tobacco abuse Current Visit: Yes Status: Acute Pt reports smoking 2 ppd Spent >10 minutes counseling pt on importance of cessation, particularly given large right lung mass Pt expresses desire to quit smoking Nicotine patch 21mg Nicotine gum prn at pt's request and no concern for aspiration History of Present Illness Consult date: 04/01/18 Requesting physician: Tonya White Reason for consult: COPD, lung mass Chief complaint: SOB History of present illness: Mr. Huyhn is a 53M with PMH of COPD presented to the ED on 03/31 for shortness of breath, increased cough with sputum production, and chest pain on inspiration. Pt stated increased cough with yellow and black sputum production began approximately 2-3 weeks ago. CXR and CTA from ED revealed a large right upper lobe mass concerning for primary lung malignancy. During the encounter with this provider, the pt was resting comfortably in bed. States his shortness of breath and associated chest pain has improved since his admission. Denies any fever, chills, unintentional weight loss, nausea, vomiting , numbness, or tingling. Pt admits to smoking 2ppd with thoughts of quitting. Pt queried about nicotine patches and gum. Past Med Surg Social Fam HX - Past Medical History Medical history: diabetes, hyperlipidemia, hypertension, migraine, other Additional medical history: back problems Psychiatric history: anxiety, depression, PTSD - Past Surgical History Surgical History: other Additional surgical history: cyst removed -rt arm/back - Social History Smoking Status: Current every day smoker Packs per day: 2 Smokeless Tobacco Status: No Alcohol use: occasionally Drug use: none All Systems: The remainder of the systems were reviewed and are negative - Constitutional Constitutional: no chills, no fever(s), no weight loss - Cardiovascular Cardiovascular: chest pain, dyspnea, no edema, no palpitations, no pedal edema - Respiratory Respiratory: cough, dyspnea, pain on inspirtation, excessive phlegm production, change in phlegm color, no hemoptysis, no wheezing, no chest congestion - Gastrointestinal Gastrointestinal: no abdominal pain, no nausea, no vomiting - Musculoskeletal Musculoskeletal: no weakness, no numbness, no tingling - Neurological Neurological: no confusion, no dizziness, no vertigo - Hematologic/Lymphatic Hematologic/Lymphatic: no easy bleeding, no easy bruising, no lymphadenopathy Physical Examination Vital Signs: Vital Signs, Last 4 Hours Resp Pulse Ox 04/01/18 15:47 16 95 General appearance: no acute distress Eyes: nonicteric ENT: oropharynx moist Neck: supple, no lymphadenopathy, no JVD Effort: normal Inspection: normal Auscultation: right: diminished breath sounds, bilateral: clear Percussion: bilateral: not dull Tactile fremitus: bilateral: normal Cardiovascular: regular rate and rhythm Gastrointestinal: soft, non-tender, non-distended Integumentary: normal Extremities: no cyanosis, no edema, no clubbing, pink and warm Musculoskeletal: no deformities normal mental status, non-focal exam, pupils equal and round mood appropriate, affect normal Results - Laboratory Findings CBC and BMP: 04/01/18 00:23 04/01/18 00:23 Abnormal lab findings: Abnormal lab results Lymphocytes # 0.4 K/mcL (0.6-4.6) L 04/01/18 00:23 VBG pO2 132 mmHg (25-50) H 03/31/18 16:22 Sodium 125 mEq/L (136-145) L 04/01/18 00:23 Chloride 93 mEq/L (98-107) L 04/01/18 00:23 Glucose 520 mg/dL (70-105) H* 04/01/18 00:23 POC Glucose 149 mg/dL (70-99) H 04/01/18 12:24 Hemoglobin A1c 10.6 % (-5.6) H 04/01/18 00:23 Beta-Hydroxybutyric Acd 1.12 mmol/L (0.02-0.27) H 03/31/18 16:08 Ur Specific Fifty [place] > 1.030 (1.010-1.025) H 03/31/18 16:20 Urine Protein 30 mg/dL (Neg-Trace) H 03/31/18 16:20 Urine Glucose (UA) >=1000 mg/dL (Normal) H 03/31/18 16:20 Urine Ketones 15 mg/dL (Negative) H 03/31/18 16:20
[2018-04-01] MEDS: Azithromycin 250 MG TABLET PO SCH (17:07)
[2018-04-01] MEDS ORDERED: Azithromycin 500 MG in D5% in Water 250 ML IVPB SCH (18:00)
[2018-04-01] MEDS ORDERED: Nicotine 2 MG GUM BC PRN (19:02)
[2018-04-01] MEDS: *HR* HYDROcodone/Acet 5/325 mg TABLET PO PRN (19:39)
[2018-04-01] MEDS: Insulin DETEMIR 100 UNIT/ML X5UNITS SQ SCH (21:33)
[2018-04-02] MEDS: MethylPREDNISolone 40 MG/ML VIAL IVP SCH ×3 (00:32→16:08)
[2018-04-02] MEDS: *HR* HYDROcodone/Acet 5/325 mg TABLET PO PRN ×3 (02:32→20:39)
[2018-04-02] MEDS: Ipratropium/Albuterol Neb 3 ML IH SCH ×6 (04:02→23:10)
[2018-04-02] MEDS: *HR* OxyCODONE Immed Rel 5 MG TABLET PO PRN ×3 (04:47→16:08)
[2018-04-02 05:19] LABS: INR 0.9; Prothrombin Time 10.1 Seconds (9.4-12.1)
[2018-04-02 05:33] LABS: BUN/Creatinine Ratio 30 (6-26); Blood Urea Nitrogen 23 mg/dL (6-20); Calcium 10.1 mg/dL (8.6-10.3); Carbon Dioxide 26 mEq/L (23-29); Chloride 99 mEq/L (98-107); Glucose 203 mg/dL (70-105); Osmolality,Calculated 283 (280-300); Potassium 4.4 mEq/L (3.5-5.1); Sodium 132 mEq/L (136-145); eGFR For Non-African Americans > 60 (> 60)
[2018-04-02] MEDS: *HR* Heparin 5,000 UNIT/ML VIAL SQ SCH ×2 (06:12→16:09)
[2018-04-02] MEDS ORDERED: *HR* Succinylcholine 200 MG/10 ML VIAL IVP ONE (07:24)
[2018-04-02] MEDS ORDERED: Dexamethasone 4 MG/ML VIAL ONE (07:24)
[2018-04-02] MEDS ORDERED: Lidocaine -MPF 4% 5 ML AMPUL ONE (07:24)
[2018-04-02] MEDS ORDERED: Lidocaine -MPF 2% 2 ML VIAL ONE (07:24)
[2018-04-02] MEDS ORDERED: *HR* Rocuronium Bromide 50 MG/5 ML VIAL ONE (07:24)
[2018-04-02] MEDS ORDERED: *HR* FentaNYL (PF) 100 MCG/2 ML VIAL ONE ×2 (07:24)
[2018-04-02] MEDS ORDERED: *HR* Propofol 200 MG/20 ML VIAL IVP ONE ×2 (07:24)
[2018-04-02] MEDS ORDERED: EPHEDrine 50 MG/ML VIAL ONE (07:35)
--- NOTE | 2018-04-02 07:44 | Anesthesia Evaluation PreOp ---
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: Other (bipolar, PTSD) Other Medical History: Diabetes Type I Anesthesia History: No Prior Anesthetic Complications ("never had anesthesia before") Alcohol Use: occasionally Drug use: none Medications and Allergies Albuterol Sulfate [Ventolin Hfa] 2 puff IH Q6H PRN 03/31/18 [History] Fluticasone Propionate Nasal [Flonase] 1 spr NS DAILY 03/31/18 [History] Fluticasone/Vilanterol [Breo Ellipta 100-25 Mcg INH] 1 puff IH DAILY 03/31/18 [ History] Insulin Glargine,Hum.rec.anlog [Jerica Solsofia] 65 unit SQ HS 03/31/18 [History ] Loratadine [Claritin] 10 mg PO DAILY 03/31/18 [History] Venlafaxine HCl [Venlafaxine HCl ER] 150 mg PO DAILY 03/31/18 [History] 3 Allergy/AdvReac Type Severity Reaction Status Date / Time sumatriptan [From Imitrex] AdvReac Hives Verified 03/31/18 18:33 - Meds/Allergy Pre-op Review Medications Reviewed: Yes Allergies Reviewed: Yes Beta Blockers on Current Med List: Yes If Beta Blockers taken, Date/Time (Last Dose taken): 04/02 Anesthesia Results - Labs 04/01/18 00:23 04/02/18 04:32 - Imaging EKG: report reviewed Anesthesia Exam Vital Signs/O2 Sat/Glucose, Most Recent Temp Pulse Resp BP Pulse Ox 98.3 F 72 18 156/95 96 04/02/18 07:34 04/02/18 07:34 04/02/18 07:34 04/02/18 07:34 04/02/18 07:34 Blood Glucose* 319 Height: 67" Weight: 76 kg NPO (# of Hours): 8 - HEENT Pupil (Motor): Pupils equal Mallampati: I Teeth: Edentulous Oral Opening: Greater than 3 - ENGINEERING PROJECT MANAGER LOC: Oriented ENGINEERING PROJECT MANAGER Motor: Normal RUE, Normal LUE, Normal RLE, Normal LLE, Normal Face ENGINEERING PROJECT MANAGER Sensory: Normal: RUE, LUE, Face, Deficit: RLE, LLE (diabetic neuropathy) - Cardiac Rhythm: Regular - Pulmonary Breath Sounds: bilateral Clear (dininished) Respiratory Effort: Symmetrical Anesthesia Assess/Plan ASA Score: 3 Modified Sullivan Scale for Level of Consciousness: Cooperative, oriented, and tranquil Anesthetic Plan: General Monitoring Plan: Standard Monitors Recovery Plan: PACU
--- NOTE | 2018-04-02 07:48 | Anesthesia Evaluation PreOp ---
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,) Other Medical History: Diabetes Type II (POORLY CONTROLLED, NEUROPATHY) Alcohol Use: occasionally Drug use: none Medications and Allergies Albuterol Sulfate [Ventolin Hfa] 2 puff IH Q6H PRN 03/31/18 [History] Fluticasone Propionate Nasal [Flonase] 1 spr NS DAILY 03/31/18 [History] Fluticasone/Vilanterol [Breo Ellipta 100-25 Mcg INH] 1 puff IH DAILY 03/31/18 [ History] Insulin Glargine,Hum.rec.anlog [Jerica Live] 65 unit SQ HS 03/31/18 [History ] Loratadine [Claritin] 10 mg PO DAILY 03/31/18 [History] Venlafaxine HCl [Venlafaxine HCl ER] 150 mg PO DAILY 03/31/18 [History] 3 Allergy/AdvReac Type Severity Reaction Status Date / Time sumatriptan [From Imitrex] AdvReac Hives Verified 03/31/18 18:33 - Meds/Allergy Pre-op Review Medications Reviewed: Yes Allergies Reviewed: Yes Anesthesia Results - Labs 04/01/18 00:23 04/02/18 04:32 Anesthesia Exam Vital Signs/O2 Sat/Glucose, Most Recent Temp Pulse Resp BP Pulse Ox 98.3 F 72 18 156/95 96 04/02/18 07:34 04/02/18 07:34 04/02/18 07:34 04/02/18 07:34 04/02/18 07:34 Blood Glucose* 319
[2018-04-02] MEDS ORDERED: *HR* Promethazine 25 MG/ML VIAL IVP PRN (08:16)
[2018-04-02] MEDS ORDERED: *HR* Meperidine 25 MG/ML SYRINGE IVP PRN (08:16)
[2018-04-02] MEDS ORDERED: *HR* Morphine 2 MG/ML SYRINGE IVP PRN (08:16)
[2018-04-02] MEDS ORDERED: Ondansetron 4 MG/2 ML VIAL IVP ONE (08:16)
[2018-04-02] MEDS ORDERED: *HR* Labetalol 20 MG/4 ML SYRINGE IVP PRN (08:16)
--- NOTE | 2018-04-02 09:57 | Anesthesia Evaluation Post Op ---
Date of Encounter: 04/02/18 Time of Encounter: 09:56 - Vital Signs Vital Signs: Vital Signs/O2 Sat, Most Current Temp Pulse Resp BP Pulse Ox 97.4 F L 70 20 132/94 96 04/02/18 09:50 04/02/18 09:50 04/02/18 09:50 04/02/18 09:50 04/02/18 09:50 - Lungs Lungs: Clear Ascult./Percussion (decreased BS right base) - Airway Airway: Non-obstructed - Cardiovascular Regular Rate - Mental Status Mental Status: Alert & Oriented, Answers Appropriately - Pain Pain Scale: 0 Pain Scale used: Numeric (1 - 10) - Nausea Vomiting Nausea Vomiting: Not Present - Hydration Hydration: Ice chips, Has not voided - Discharge PostOp Status: Transfer Patient to floor
[2018-04-02] MEDS: Loratadine 10 MG TABLET PO SCH (10:12)
[2018-04-02] MEDS: Venlafaxine XR (24 HR) 150 MG CAP.ER.24H PO SCH (10:12)
[2018-04-02] MEDS: hydrOXYzine pamoate 25 MG CAPSULE PO PRN ×3 (10:12→20:39)
[2018-04-02] MEDS: Nicotine 21 MG PATCH.TD24 TD SCH (10:13)
[2018-04-02] MEDS: Fluticasone Propionate Nasal 50 MCG/SPRAY BOTTLE NS SCH (10:15)
[2018-04-02] MEDS: Insulin LISPRO 300 UNITS/3 ML VIAL SQ SCH ×6 (10:18→20:41)
[2018-04-02] MEDS: Budesonide/Formoterol 160/4.5 1 PUFF INH IH SCH ×2 (11:08→20:44)
--- NOTE | 2018-04-02 12:18 | Internal Med Progress Note ---
Hospitalist Progress Note - Encounter Date of Encounter: 04/02/18 Time of Encounter: 12:00 - Subjective Interval History: Underwent bronch this AM uneventfully, SOB and R shoulder pain mildly improved. No fever/chills - Exam Vitals: Temp Pulse Resp BP Pulse Ox 97.4 F L 62 16 170/103 99 04/02/18 11:17 04/02/18 11:17 04/02/18 11:17 04/02/18 11:23 04/02/18 11:17 Exam: General: Alert and oriented, not in acute distress. Cardiovascular:Normal S1 & S2, No JVD. Pulse regular. Lungs: scattered wheezes bilaterally Abdomen:Soft, non-tender, no rigidity. MSK: R shoulder/upper chest tender to palpation. ROM full Neurological:Normal cognition and motor skills. Non-focal - Assessment and Plan (1) COPD exacerbation Current Visit: Yes Status: Acute Assessment and Plan: D3 IV Solu-Medrol, azithromycin, and duoneb every 4 and when necessary may be able to discharge home tomorrow on PO prednisone and azithromycin (2) Mass of right lung Current Visit: Yes Status: Acute Assessment and Plan: New diagnosis, history of 50 pack year smoking Associated with right hilar lymphadenopathy and extension into the mediastinum abutting the ascending aorta significant pain over the same region, analgesics as prescribed bronch this AM, follow up on path (3) Diabetes mellitus Current Visit: Yes Status: Acute Assessment and Plan: Poorly controlled diabetes, A1c 10.6 Glycemic control aggravated by steroid use, mid 200s Increase levemir to 20U and lispro 8U TIDWM with MDSS (4) DVT prophylaxis Current Visit: Yes Status: Acute Assessment and Plan: Subcutaneous heparin - Time Spent with Patient Total time spent is greater than 50% in coordination of care (as documented) at patient's floor/unit and/or counseling patient: Plan of Care Discussed with: nurse Internal Medicine: Result - Labs CBC & Chem 7: 04/01/18 00:23 04/02/18 04:32 Labs: BMP 04/02/18 04:32 Sodium 132 L Potassium 4.4 Chloride 99 Carbon Dioxide 26 BUN 23 H Creatinine 0.77 Glucose 203 H Calcium 10.1 - ABG Interpretation ABG results: PT/INR, D-dimer PT 10.1 Seconds (9.4-12.1) 04/02/18 04:32 - Impressions Impressions Chest X-Ray 04/02/18 08:49 IMPRESSION: Similar appearance of right hilar and suprahilar opacity consistent with patient's known right upper lobe mass. Mild right basilar atelectasis. No evidence of pneumothorax. D/ / Trina Mayer MD / Trina Mayer MD Interpreting Provider: Trina Mayer MD Consult Discharge Plan - Plan Referrals: Deniz Lane DO [Primary Care Provider] - (3) Diabetes mellitus Qualifiers: Diabetes mellitus type: type 2 Diabetes mellitus long term care pharmacist insulin use: with long-term use Diabetes mellitus complication status: with unspecified complications Qualified Code(s): E11.8 - Type 2 diabetes mellitus with unspecified complications; Z79.4 - long-term (current) use of insulin
[2018-04-02 15:08] LABS: Appearance of Body Fluid Cloudy (Clear); Volume of Body Fluid 15 mL
[2018-04-02 15:33] LABS: Appearance of Body Fluid Cloudy (Clear); Volume of Body Fluid 6 mL
[2018-04-02] MEDS ORDERED: Insulin LISPRO 300 UNITS/3 ML VIAL SQ SCH (17:00)
[2018-04-02] MEDS: Azithromycin 250 MG TABLET PO SCH (17:29)
[2018-04-02] MEDS ORDERED: Insulin DETEMIR 100 UNIT/ML X5UNITS SQ SCH (21:00)
[2018-04-03] MEDS: MethylPREDNISolone 40 MG/ML VIAL IVP SCH (00:50)
[2018-04-03] MEDS: *HR* OxyCODONE Immed Rel 5 MG TABLET PO PRN (03:12)
[2018-04-03] MEDS: hydrOXYzine pamoate 25 MG CAPSULE PO PRN (03:12)
[2018-04-03] MEDS: Ipratropium/Albuterol Neb 3 ML IH SCH ×3 (03:37→11:20)
[2018-04-03] MEDS: *HR* HYDROcodone/Acet 5/325 mg TABLET PO PRN (05:55)
[2018-04-03] MEDS: *HR* Heparin 5,000 UNIT/ML VIAL SQ SCH (05:56)
[2018-04-03 08:00] VITALS: BP 166/84
[2018-04-03] MEDS ORDERED: Insulin LISPRO 300 UNITS/3 ML VIAL SQ SCH (08:00)
[2018-04-03 08:05] LABS: Basophils % 0.1 %; Eosinophils # 0.1 K/mcL (0.0-0.6); Eosinophils % 0.6 %; Hematocrit 47.8 % (37.5-50.1); Hemoglobin 16.6 g/dL (12.9-16.9); Immature Granulocytes % 0.7 % (0-4); Lymphocytes # 2.4 K/mcL (0.6-4.6); Lymphocytes % 19.6 %; Mean Corpuscular HGB Conc 34.7 g/dL (31.6-35.5); Mean Corpuscular Hemoglobin 32.3 pg (28.0-33.3); Mean Platelet Volume 10.6 fL (9.4-12.4); Monocytes # 0.9 K/mcL (0.0-1.3); Platelet Count 222 K/mcL (140-400); Red Blood Count 5.14 M/mcL (4.19-5.50); Red Cell Distribution Width 12.8 % (11.5-14.5)
[2018-04-03 08:08] LABS: Neutrophils # 8.9 K/mcL (1.6-8.9)
[2018-04-03] MEDS: Nicotine 21 MG PATCH.TD24 TD SCH (08:13)
[2018-04-03] MEDS: Loratadine 10 MG TABLET PO SCH (08:13)
[2018-04-03] MEDS: Venlafaxine XR (24 HR) 150 MG CAP.ER.24H PO SCH (08:13)
[2018-04-03 08:14] LABS: BUN/Creatinine Ratio 24 (6-26); Blood Urea Nitrogen 21 mg/dL (6-20); Calcium 9.6 mg/dL (8.6-10.3); Carbon Dioxide 29 mEq/L (23-29); Chloride 97 mEq/L (98-107); Glucose 226 mg/dL (70-105); Osmolality,Calculated 284 (280-300); Potassium 4.3 mEq/L (3.5-5.1); Sodium 132 mEq/L (136-145); eGFR For Non-African Americans > 60 (> 60)
[2018-04-03] MEDS: Fluticasone Propionate Nasal 50 MCG/SPRAY BOTTLE NS SCH (08:14)
[2018-04-03] MEDS: Insulin LISPRO 300 UNITS/3 ML VIAL SQ SCH (08:15)
--- NOTE | 2018-04-03 08:36 | Pulmonology Progress Note ---
Date of Encounter: 04/03/18 Time of Encounter: 07:40 Assessment and Plan (1) COPD exacerbation Current Visit: Yes Status: Resolved Overall patient is improving and if he will be discharged home today, he can be on taper steroids and empiric antibiotics. Patient was advised to quit smoking. As outpatient he will need pulmonary function tests. Continue bronchodilators. (2) Mass of right lung Current Visit: Yes Status: Acute I have called pathology and result is pending. Patient had bronchoscopy and location was challenging for biopsy, however it was done if biopsy will be nondiagnostic, then will need CT-guided biopsy which can be done as outpatient. Patient is anxious to go home and in my opinion that can be done as long as he has follow-up with primary care or even our office if needed for further workup. Oncology consultation is recommended because of the pain and radiation may be helpful.. Subjective Principal diagnosis: Lung mass Interval history: Patient continued to have right-sided chest pain. He denies any significant hemoptysis Objective PUL Vital signs: Last Vital Signs Temp 97.9 F 04/03/18 07:59 Pulse 67 04/03/18 07:59 Resp 19 04/03/18 07:59 BP 166/84 04/03/18 07:59 Pulse Ox 96 04/03/18 07:59 General appearance: appears uncomfortable ENT: oropharynx moist Neck: supple Effort: normal Auscultation: left: clear, right: diminished breath sounds Percussion: bilateral: not dull Cardiovascular: regular rate and rhythm Gastrointestinal: normoactive bowel sounds, non-distended Extremities: no cyanosis normal mental status, non-focal exam mood appropriate Results - Laboratory Findings CBC and BMP: 04/03/18 07:41 04/03/18 07:41 PT/INR, D-dimer PT 10.1 Seconds (9.4-12.1) 04/02/18 04:32 Abnormal lab findings: Abnormal lab results WBC 12.3 K/mcL (4.3-11.1) H D 04/03/18 07:41 VBG pO2 132 mmHg (25-50) H 03/31/18 16:22 Sodium 132 mEq/L (136-145) L 04/03/18 07:41 Chloride 97 mEq/L (98-107) L 04/03/18 07:41 BUN 21 mg/dL (6-20) H 04/03/18 07:41 Glucose 226 mg/dL (70-105) H 04/03/18 07:41 POC Glucose 185 mg/dL (70-99) H 04/03/18 07:55 Hemoglobin A1c 10.6 % (-5.6) H 04/01/18 00:23 Beta-Hydroxybutyric Acd 1.12 mmol/L (0.02-0.27) H 03/31/18 16:08 Ur Specific [place] > 1.030 (1.010-1.025) H 03/31/18 16:20 Urine Protein 30 mg/dL (Neg-Trace) H 03/31/18 16:20 Urine Glucose (UA) >=1000 mg/dL (Normal) H 03/31/18 16:20 Urine Ketones 15 mg/dL (Negative) H 03/31/18 16:20 Fluid Appearance Cloudy (Clear) A 04/02/18 09:14 - Microbiology Findings Microbiology Findings: Microbiology, Last 48 Hours 04/02/18 09:09 Respiratory Culture - Preliminary Right Upper Lobe Lung - Clinical Findings Intake & Output: Intake & Output 04/02/18 04/03/18 04/03/18 23:59 07:59 15:59 Intake Total 360 / 360 Output Total 600 / 600 Balance -600 / -600 360 / 360 Weight 75.4 kg Consult Discharge Plan - Plan Referrals: Deniz Lane DO [Primary Care Provider] -
[2018-04-03] MEDS ORDERED: MethylPREDNISolone 40 MG/ML VIAL IVP SCH (09:00)
--- NOTE | 2018-04-03 10:20 | Discharge Summary ---
- NOTES TO OUTPATIENT PROVIDER Notes to Outpatient Provider: Patient with history of tobacco use is admitted for COPD exacerbation and new diagnosis of R upper lobe lung mass with mediastinal extension. Treated with IV steroids, azithromycin, bronchodilators , and underwent bronchoscopy with biopsy on 04/02. He will be discharged on tapering dose of steroids, PO abx, and to follow up with pulmonary for biopsy result. He is also give medications for pain and will need to follow up with oncology as outpatient after the bx result comes out or pain remains poorly controlled on analgesics. Orders not resulted at time of discharge: Pending orders 04/02/18 09:09 Culture,Respiratory [RM] Routine 04/02/18 09:10 AFB Culture, Respiratory [TB] Routine Fungal Culture [MYC] Routine Gram Stain [RM] Routine Cytology [PTH] Routine 04/02/18 09:14 AFB Culture, Respiratory [TB] Routine Culture,Respiratory [RM] Routine Fungal Culture [MYC] Routine Date of Encounter: 04/03/18 Time of Encounter: 09:00 - Discharge Diagnosis (1) COPD exacerbation Priority: Primary Status: Resolved (2) Mass of right lung Priority: Secondary Status: Acute (3) Diabetes mellitus Priority: Secondary Status: Acute Qualifiers: Diabetes mellitus type: type 2 Diabetes mellitus assisted insulin use: 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 Huynh is a 53 year old male - Time Spent with Patient Total time spent providing and/or coordinating discharge services: - Discharge Medications Prescriptions: HYDROcodone/Acet 10/325 mg [Curtice 10-325 mg] 1 tab PO Q4HR PRN 3 Days #15 tab PRN Reason: Breakthrough Pain Azithromycin [Zithromax] 500 mg PO Q24H 3 Days #6 tablet Gabapentin [Neurontin] 300 mg PO TID #30 capsule predniSONE [PredniSONE] 40 mg PO DAILY #9 tablet Home Medications: Albuterol Sulfate [Ventolin Hfa] 2 puff IH Q6H PRN 03/31/18 [History] Fluticasone Propionate Nasal [Flonase] 1 spr NS DAILY 03/31/18 [History] Fluticasone/Vilanterol [Breo Ellipta 100-25 Mcg INH] 1 puff IH DAILY 03/31/18 [ History] Insulin Glargine,Hum.rec.anlog [Rafiqkatherinlisy Galindofredoneyda] 65 unit SQ HS 03/31/18 [History ] Loratadine [Claritin] 10 mg PO DAILY 03/31/18 [History] Venlafaxine HCl [Venlafaxine HCl ER] 150 mg PO DAILY 03/31/18 [History] Azithromycin [Zithromax] 500 mg PO Q24H 3 Days #6 tablet 04/03/18 [Rx] Gabapentin [Neurontin] 300 mg PO TID #30 capsule 04/03/18 [Rx] HYDROcodone/Acet 10/325 mg [Curtice 10-325 mg] 1 tab PO Q4HR PRN 3 Days #15 tab [Rx] predniSONE [PredniSONE] 40 mg PO DAILY #9 tablet 04/03/18 [Rx] Allergies/Adverse Reactions: 3 Allergy/AdvReac Type Severity Reaction Status Date / Time sumatriptan [From Imitrex] AdvReac Hives Verified 03/31/18 18:33 Date of admission: 03/31/18 22:37 Primary care physician: Deniz Lane DO Consults: 03/31/18 23:04 Consult to Pulmonology [CONS] Routine Consulting Provider: [facility] Reason for Consult: lung mass new diagnosis Call Completed: No 04/01/18 00:00 Consult to Pastoral Services [CONS] Routine Comment: Consult to Marketing Liaison [CONS] Routine Reason for SW Consult: new dx cancer - Constitutional Vitals: Temp Pulse Resp BP Pulse Ox 97.9 F 67 19 166/84 96 04/03/18 07:59 04/03/18 07:59 04/03/18 07:59 04/03/18 07:59 04/03/18 07:59 General appearance: Present: mild distress, A&O X 3, answers questions appropriately Exam: General: Alert and oriented, not in acute distress. Cardiovascular:Normal S1 & S2, No JVD. Pulse regular. Lungs: scattered wheezes bilaterally Abdomen:Soft, non-tender, no rigidity. MSK: R shoulder/upper chest tender to palpation. ROM full Neurological:Normal cognition and motor skills. Non-focal - Patient Status Disposition: Home, Self-Care Condition: Fair Overall status at discharge: patient is progressing back to baseline - Discharge Instructions Instructions: Diabetes Mellitus Type 2 in Adults (DC), Chronic Obstructive Pulmonary Disease (DC) Follow Up With: Deniz Lane DO [Primary Care Provider] - Nemo Mayer MD [Partnered Physician] - - Diet and Activity Activity: resume usual activities as tolerated Diet: diabetic diet
[2018-04-03] MEDS: Budesonide/Formoterol 160/4.5 1 PUFF INH IH SCH (11:54)
[2018-04-03] MEDS ORDERED: Insulin DETEMIR 100 UNIT/ML X5UNITS SQ SCH (21:00)
== END 2018-04-03 12:15 | disposition home or self-care (01) | DRG 140 ==
LOC: 2ANU 14:02 → EMEROOARM 14:02 → 2ANU 21:18 → SUATTDRO 22:37
PROVIDERS: ADMIT Student in an Organized Health Care Education/Training Program; ATTEND Internal Medicine